=== PATIENT | male | born 1990 | race Caucasian/White ===

== ENCOUNTER 2017-04-05 12:11 | Emergency (ER) | payer OTHER, SELFPAY ==
[2017-04-05] MEDS ORDERED: HYDROcodone/Acetaminophen 10/325 mg Tablet ONE (12:54)
--- NOTE | 2017-04-05 13:09 | RAD ---
LEFT HAND THREE VIEWS: HISTORY: A 26-year-old male with a history of left hand injury and laceration. FINDINGS: Bandage material overlies the second through fifth proximal fingers. No evidence for acute fracture or dislocation. No overt metallic density foreign body. IMPRESSION: Bandage material overlies the second through fifth fingers. No fracture, dislocation, or overt metal lic density foreign body. POS: [facility]
[2017-04-05] MEDS ORDERED: Lidocaine 1% 20 ML MDV ONE (13:27)
[2017-04-05] MEDS ORDERED: Adacel (T-DAP) 0.5 ML VIAL ONE (13:40)
[2017-04-05] MEDS ORDERED: Bacitracin Zinc 1 Packet ONE (14:34)
== END 2017-04-05 14:56 | disposition home or self-care (01) ==
LOC: NAV ERS 12:11
DX: S61.411A Laceration without foreign body of right hand, initial encounter (principal); S65 Injury of blood vessels at wrist and hand level; E78.5 Hyperlipidemia, unspecified; I10 Essential (primary) hypertension; Z79.899 Other long term (current) drug therapy; W26.0XXA Contact with knife, initial encounter
CPT/HCPCS: 12002; 90471; 90715; J2001